=== PATIENT | female | born 1995 | race Caucasian/White ===

== ENCOUNTER 2024-09-27 19:23 | Emergency (ER) | payer SELFPAY ==
[~2024-09-27] VITALS: Ht 165.1 cm; Wt 91.0 kg
[2024-09-27 19:43] VITALS: TEMP 36.8; O2SAT 98
[2024-09-27] MEDS: TETANUS, DIPHTHERIA, PERTUSSIS VAC/PF 0.5ML (>10YR OLD) IM ONE (20:45)
[2024-09-27] MEDS: HYDROCODONE/ACETAMINOPHEN 5/325MG TABLET PO ONE (21:46)
[2024-09-27] MEDS ORDERED: HYDR-4001 MT (22:18)
[2024-09-27] MEDS: IBUPROFEN 600MG TABLET PO ONE (22:41)
[2024-09-27 22:43] VITALS: BP 112/65; PULSE 70; RESP 18; O2SAT 98
== END 2024-09-27 22:45 | disposition home or self-care (01) ==
LOC: ER 19:23
DX: S01.01XA Laceration without foreign body of scalp, initial encounter (principal); Z23 Encounter for immunization; W22.01XA Walked into wall, initial encounter; Y93.89 Activity, other specified; Y92.89 Other specified places as the place of occurrence of the external cause; Y99.8 Other external cause status
CPT/HCPCS: 81025; 70450; 90715; 12002; 90471; 99285; Z7610